=== PATIENT | male | born 1960 | race Caucasian/White ===

== ENCOUNTER 2017-05-31 08:21 | Emergency (ER) | payer BC ==
[2017-05-31 08:36] VITALS: BP 134/83
--- NOTE | 2017-05-31 08:46 | UC ---
Respiratory Complaint HPI - HPI Summary HPI Summary: 57 y/o male presents to the urgent care c/o SOB, productive cough with green phlegm and chest congestion since Thursday05/29/2017. Pt also c/o of lower back pain when he coughs. He states he has Hx of Back surgery in 2007. Pt States symptoms started on with nasal congestion and yellowish nasal discharge. He had chills and subjective fever last night. Pt denies chest pain, abdominal pain, N/V/D. he has taking a cough medication his gave him. He is a everyday smoker. - History of Current Complaint Chief Complaint: UCRespiratory Stated Complaint: CHEST CONGESTION, AND BACK PAIN Time Seen by Provider: 05/31/17 08:43 Hx Obtained From: Patient Onset/Duration: Gradual Onset, Lasting Days - 3 days, Still Present Timing: Intermittent Episodes Severity Currently: Moderate Pain Intensity: 6 - back pain when he coughs Pain Scale Used: 0-10 Numeric Character: Cough: Productive, Sputum Description: - green Aggravating Factors: Recumbent Position Alleviating Factors: OTC Meds Associated Signs And Symptoms: Positive: Chills. Negative: Fever, Wheezing - Risk Factors Pulmonary Embolism Risk Factors: Negative Cardiac Risk Factors: Negative Pseudomonas Risk Factors: Negative Tuberculosis Risk Factors: Negative - Allergies/Home Medications Allergies/Adverse Reactions: Allergies Allergy/AdvReac Type Severity Reaction Status Date / Time No Known Allergies Allergy Verified 05/31/17 08:36 PMH/Surg Hx/FS Hx/Imm Hx Previously Healthy: Yes Other Neurological History: Degenerative disc disease - Surgical History Surgical History: Yes Surgery Procedure, Year, and Place: back surgery 2007 - Family History Known Family History: Positive: Hypertension - Social History Occupation: Employed Full-time Lives: With Family Alcohol Use: Rare Substance Use Type: None Smoking Status (MU): Never Smoked Tobacco Review of Systems Constitutional: Negative Skin: Negative Eyes: Negative ENT: Negative Respiratory: Shortness Of Breath - at times, Cough - productive cough with green sputum Cardiovascular: Negative Gastrointestinal: Negative Genitourinary: Negative Motor: Negative Neurovascular: Negative Musculoskeletal: Negative Neurological: Negative Psychological: Negative Is Patient Immunocompromised?: No All Other Systems Reviewed And Are Negative: Yes Physical Exam Triage Information Reviewed: Yes Vital Signs: Initial Vital Signs Temp 99.9 F 05/31/17 08:29 Pulse 81 05/31/17 08:29 Resp 20 05/31/17 08:29 BP 134/83 05/31/17 08:29 Pulse Ox 94 05/31/17 08:29 - Additional Comments Vital Signs Reviewed: Yes General: well developed, well nourished male sitting in the examining table w/o any apparent distress Eyes: Positive: Conjunctiva Clear - PERRLA, EOMI, fundi grossly normal ENT: Positive: Normal ENT inspection, Hearing grossly normal, Pharynx normal, Nasal congestion - edematous and erythematous nasal mucosa, Nasal drainage - yellowish drainage, TMs normal. Negative: Tonsillar swelling, Tonsillar exudate Neck: Positive: Supple, Nontender, No Lymphadenopathy Respiratory: no orthopnea or dyspnea. Able to speak in full sentences, no retractions or accessory muscle use, no tripod position, stridor, or head bobbing. Scattered rhonchi in the posterior upper lungs, no wheezes, crackles or rales. Cardiovascular: Positive: RRR, No Murmur, Pulses Normal, Brisk Capillary Refill Abdomen Description: Positive: Nontender, No Organomegaly, Soft. Negative: CVA Tenderness (R), CVA Tenderness (L) Bowel Sounds: Positive: Present BACK: Patient walked into the urgent care room with symmetric ambulation, No signs of limping, antalgic, able to bear weight. scar at the level of L4-S1 s/p back surgery. Positive Left side paraspinal muscle tenderness at this level. No signs of trauma, No masses palpated. No CVAT, no flank ecchymosis . No sacroiliac notch tenderness, FROM: flexion/ extension/ lateral bending and rotation,Straight Leg Raise: negative Musculoskeletal: Positive: Strength Intact, ROM Intact, No Edema Neurological Exam: Normal Psychological Exam: Normal Skin Exam: Normal UC Diagnostic Evaluation - Laboratory O2 Sat by Pulse Oximetry: 94 Respiratory Course/Dx - Course Course Of Treatment: 57 y/o male presents to the urgent care c/o SOB, productive cough with green phlegm and chest congestion since Thursday05/29/2017. Pt also c/o of lower back pain when he coughs. He states he has Hx of Back surgery in 2007. Pt States symptoms started on with nasal congestion and yellowish nasal discharge. He had chills and subjective fever last night. Pt denies chest pain, abdominal pain, N/V/D. he has taking a cough medication his gave him. He is a everyday smoker. Hx obtained. Pt with scattered rhonchi on posterior lungs and left paraspinal muscle tenderness at the level of L4-S1 on examination. Pt declined Chest S-ray and requested ABX treatment. Pt with acute bronchitis. Pt Rx Z-albina and Tessalon tabs PO and albuterol inhaler to alleviate symptoms. Naproxen PO for back pain. Pt advised to increase fluid intake and eat well. if not improvement or worsening of symptoms to return to the urgent care or f/u with PCP for further management. Pt understood and agreed with plan of care - Differential Dx/Diagnosis Differential Diagnosis/HQI/PQRI: Asthma, Bronchitis, Exacerbation Of COPD, Lower Resp Infection, Sinusitis Provider Diagnoses: 1- Acute bronchitis. 2-Lower back pain Discharge - Discharge Plan Condition: Stable Disposition: HOME Prescriptions: Albuterol HFA INHALER* [Ventolin HFA Inhaler*] 1 - 2 puff INH Q4H PRN #1 mdi PRN Reason: Cough Azithromyxin ALBINA (NF) [Z-Albina (Zithromax) 250 mg tabs #6] 2 tab PO .TODAY, THEN 1 DAILY #6 tab Benzonatate CAP* [Tessalon 100 MG CAP*] 100 mg PO TID PRN #15 cap PRN Reason: Cough Naproxen [Naproxen 500 mg] 500 mg PO Q8H PRN #30 tab PRN Reason: lower back pain Patient Education Materials: Acute Bronchitis (ED), Acute Low Back Pain (ED) Referrals: Farrukh German MD [Primary Care Provider] - 3 Days Additional Instructions: 1-Please take full course of antibiotic to avoid resistance. 2-Take Tessalon PO tabs as directed and use the albuterol inhaler to alleviate cough. Increase fluid intake, rest and eat well. 3- If symptoms do not improve or worsen or your develop SOB with fever and severe wheezing please go immediately to the ER further evaluation and treatment. 4- F/u with your PCP in 2-3 days for further management 5- Take Naproxen PO q6-8hrs prns to alleviate lower back pain, wear a back support and avoid heavy lifting
== END 2017-05-31 09:22 | disposition home or self-care (01) ==
LOC: UCEAST 08:21
DX: J20.9 Acute bronchitis, unspecified (principal); M54.5 Low back pain
CPT/HCPCS: 99202; G0463